=== PATIENT | female | born 1985 | race Caucasian/White ===

== ENCOUNTER 2018-08-15 06:32 | Inpatient (IN) | payer MEDICAID ==
[~2018-08-15] VITALS: Ht 154.9 cm; Wt 78.3 kg
[~2018-08-15 06:32] MED LIST: PREN1TAB17 BU
[2018-08-15 06:47] VITALS: BP 120/73; PULSE 76; RESP 16
[2018-08-15] MEDS ORDERED: NPH,100I5 SQ (06:55)
[2018-08-15] MEDS ORDERED: MISOPROSTOL 200 MCG TAB PR PRN ×2 (07:00→16:30)
[2018-08-15] MEDS ORDERED: CEFAZOLIN 2 GM/50 ML (PMX) 50 ML IVPB SCH (07:00)
[2018-08-15] MEDS ORDERED: CARBOPROST 250 MCG INJ IM PRN ×2 (07:00→16:30)
[2018-08-15] MEDS ORDERED: OXYTOCIN 30 UNITS/LR 500 ML IV SCH ×2 (07:00→16:10)
[2018-08-15] MEDS ORDERED: OXYTOCIN 30 UNITS/LR 500 ML IV PRN ×2 (07:00→16:30)
[2018-08-15] MEDS ORDERED: METHYLERGONOVINE 0.2 MG INJ IM PRN ×2 (07:00→16:30)
--- NOTE | 2018-08-15 07:42 | PREAC ---
Date/Time of Note Date/Time of Note DATE: 08/15/18 TIME: 07:40 Anesthesia Eval and Record Evaluation Time Pre-Procedure Interview DATE: 08/15/18 TIME: 07:40 Age 33 Sex female NPO: 8 hrs Preoperative diagnosis PREVIOUS C SECTION Planned procedure REPEAT C SECTION Past Medical History Past Medical History: Includes Endo: Diabetes : : (4), Para: (3), Gestational age: (38 4/7 WEEKS) Surgery & Anesthesia Issues No known issue Meds Anticoagulation: No Beta Tali within 24 hr: No Reason Beta Tali not given: Pt. not on B-Tali Reported Medications NPH, Human Insulin Isophane (Humulin N Kwikpen) 100 Unit/1 Ml Insuln.pen, 6 UNIT SQ, EA 08/15/18 Vit-Iron Fumarate-FA ( Tablet) 1 Each Tablet, 1 EACH BU DAILY 08/22/13 [none] No Conflict Check 01/03/13 Current Medications Lactated Ringer's 1,000 ml @ 125 mls/hr Q8H IV ; Start 08/15/18 at 06:53 Cefazolin Sodium/ Dextrose 50 ml @ 100 mls/hr ONCE IVPB ; Start 08/15/18 at 07:00 Oxytocin/Lactated Ringer's 500 ml @ 125 mls/hr POST IV ; Start 08/15/18 at 07:00 Oxytocin/Lactated Ringer's 500 ml @ 0 mls/hr ONCE PRN IV .VAGINAL BLEEDING; Start 08/15/18 at 07:00 Methylergonovine Maleate (Methergine) 0.2 mg ONCE PRN IM .VAGINAL BLEEDING; Start 08/15/18 at 07:00 Carboprost Tromethamine (Hemabate) 250 mcg ONCE PRN IM .VAGINAL BLEEDING; Start 08/15/18 at 07:00 Misoprostol (Cytotec) 1,000 mcg ONCE PRN ME .VAGINAL BLEEDING; Start 08/15/18 at 07:00 Meds reviewed: Yes Allergies Coded Allergies: No Known Allergies (Verified Allergy, Unknown, 08/22/13) No Known Drug Allergy (Verified Allergy, Unknown, 01/03/13) Allergies Reviewed: Yes Labs/Studies Labs Reviewed: Reviewed by anesthesiologist test: N/A Pre-procedure Exam Last vitals Vital Signs Date Temp Pulse Resp B/P (MAP) Pulse Ox O2 O2 Flow FiO2 Time Delivery Rate 5/15/19 98.7 76 16 120/73 Room Air 06:47 (89) Airway: Adequate mouth opening, Adequate thyromental dist Mallampati: Mallampati II Teeth: Normal Lung: Normal Heart: Normal ASA Physical Status ASA physical status: 2 Emergency: None Planned Anesthetic Neuraxial: Spinal Planned Pain Management Sub-arachniod narcotics, Parenteral pain med Pre-operative Attestations Prior to commencing anesthesia and surgery, the patient was re-evaluated, there was verification of: *The patient's identity *The results of appropriate recent lab work and preoperative vital signs *The above evaluation not changing prior to induction *Anesthetic plan, risk benefits, alternative and complications discussed with patient/family; questions answered; patient/family understands, accepts and wishes to proceed. Nilesh Antony M.D. August 15, 2018 07:42
[2018-08-15] MEDS: LACTATED RINGER'S 1,000 ML IV SCH ×2 (07:47→08:33)
[2018-08-15] MEDS ORDERED: ONDANSETRON 4 MG INJ IV STA (08:29)
[2018-08-15] MEDS ORDERED: CITRIC ACID/NA CITRATE 30 ML CUP PO ONE (08:30)
[2018-08-15] MEDS ORDERED: morphine SULFATE/PF (10 MG/10 ML) INJ ONE (10:59)
[2018-08-15] MEDS ORDERED: FENTAnyl 50 MCG/ML VIAL ONE (10:59)
[2018-08-15] MEDS ORDERED: METOCLOPRAMIDE 10 MG INJ ONE (10:59)
[2018-08-15] MEDS ORDERED: OXYTOCIN 10 UNIT INJ ONE (10:59)
--- NOTE | 2018-08-15 10:59 | HP ---
Date/Time of Note Date/Time of Note DATE: 08/15/18 TIME: 10:51 OB - History Hx of Present Free Text/Dictation 33 years old 4 para 3-0-0-3 with diabetes mellitus on insulin, three previous delivery at 38 weeks and 4 days desiring repeat delivery and permanent surgical sterilization. She states good movement. She denies nausea, vomiting, shortness of breath, chest pain, headache, visual changes, vaginal bleeding or LOF. Risk factors: 1. Three previous delivery 2. Diabetes mellitus on insulin 3. Obesity Chief Complaint: Scheduled for repeat delivery and bilateral tubal ligation Estimated Due Date: August 25, 2018 : 4 Para: 3 Spontaneous : 0 Therapeutic : 0 Care: Good Care Ultrasounds: Normal mid trimester US Medical Complications: Other (Diabetes mellitus) Past Family/Social History * Past Medical, Surgical, Family and Obstetric Histories reviewed from chart. Blood Type: O+ Rubella: immune RPR/VDRL: Negative GBS Status: Negative HBsAG: Negative OB Admission Exam Vital Signs Vital Signs Vital Signs Date Temp Pulse Resp B/P (MAP) Pulse Ox O2 O2 Flow FiO2 Time Delivery Rate 08/15/18 98.7 76 16 120/73 Room Air 06:47 (89) Physical Exam HEENT: WNL Heart: Rhythm Normal Lungs: Clear Abdomen: WNL Extremities: Normal Reflexes: Normal Membranes: Intact Heart Rate: 150's Accelerations: Accelerations Present Decelerations: No Decelerations Varibility: Moderate Contractions on Admission: None Last 72 hours Lab Results CBC & BMP 08/15/18 07:44 OB Assessment/Plan Other plan: 33 years old 4 para 3-0-0-3 with diabetes mellitus on insulin, 3 previo us delivery and obesity at 38 weeks and 4 days desiring repeat delivery and permanent surgical sterilization-FHR: No sign of metabolic acidosis- Category I -Continuous EFM, toco -CBC, blood type and screen -Please see the orders -O+/Rubella: Immune -GBS: Negative 2) DM: She is currently on insulin. Check fasting blood sugar and before meals after delivery, will be managed base of blood sugar level 3) obesity: Diet and exercise discussed in detail with patient The risk of delivery including but not limited to bleeding, infection, injury to other organs (bowel, bladder, ureter, vessels, nerves), injury to fetus, blood transfusion, blood transfusion related infection, risk of anesthesia, adhesion, needs for future , removal of uterus or any other indicated surgery, permanent surgical sterilization, other contraceptive options including IUD, increased risk of ectopic if failure of procedure occurs discussed with the patient and her family. She expressed understanding. All of her questions were answered. She signed the informed consent. PHYSICIAN'S VERIFICATION OF INFORMED CONSENT The patient was counseled regarding the procedure, its indications, risks, potential complications and alternatives and any questions were answered. Consent was obtained. PLANNED PROCEDURE/TREATMENT: delivery with possible using vacuum/ forceps, bilateral tubal ligation/salpingectomy and any other indicated surgery PHYSICIAN'S VERIFICATION OF INFORMED CONSENT FOR BLOOD TRANSFUSION: There is a reasonable possibility that blood transfusion will be necessary as a result of the patient's procedure. I have discussed the following with the patient/patient's legal commissary representative: An explanation of the benefits and risks of the transfusion of blood or blood products and the possible alternatives. All questions have been answered to the patient's satisfaction. INFORMED CONSENT:The patient has been informed of: The nature of the proposed care, treatment, services, medications, interventions or procedures. Potential benefits, risks or side effects, including potential problems related to recuperation. The likelihood of achieving care treatment and service goals. Reasonable alternatives to the proposed care, treatment and service. The relevant risks, benefits and side effects related to alternatives, including the possible results of not receiving care, treatment and services. When indicated, any limitations on the confidentiality of information learned from or about the patient. If appropriate, the risks, benefits and alternatives of the drugs to be used for sedation/analgesia including moderate sedation. If appropriate, patient has been provided information on the risks, benefits and alternatives to the transfusion of blood and/or blood products. If appropriate, patient has been provided information regarding the [employer] Blood Act. ARTURO GUEVARA August 15, 2018 10:58
[2018-08-15] MEDS ORDERED: NALOXONE (0.4 MG/ML) INJ IV PRN (11:30)
[2018-08-15] MEDS ORDERED: TRIMETHOBENZAMIDE 100 MG/ML VIAL IM PRN ×2 (11:30)
[2018-08-15] MEDS ORDERED: LABETALOL HCL 20MG INJ IV PRN (11:30)
[2018-08-15] MEDS ORDERED: hydrALAzine 20 MG INJ IV PRN (11:30)
[2018-08-15] MEDS ORDERED: HYDROmorphONE 1 MG/5 ML IV SYRINGE IV PRN ×3 (11:30)
[2018-08-15] MEDS ORDERED: NALBUPHINE HCL (10 MG/1 ML) INJ IV PRN (11:30)
[2018-08-15] MEDS ORDERED: KETOROLAC 30 MG INJ IV PRN (11:30)
[2018-08-15] MEDS ORDERED: OXYCODONE/ACETAMINOPHEN (5/325) TAB PO PRN ×2 (11:30)
[2018-08-15] MEDS ORDERED: DIPHENHYDRAMINE 50 MG INJ IV PRN ×2 (11:30)
[2018-08-15] MEDS ORDERED: FENTAnyl 50 MCG/ML VIAL IV PRN ×3 (11:30)
[2018-08-15] MEDS ORDERED: morphine 2 MG INJ IV PRN ×2 (11:30)
[2018-08-15] MEDS ORDERED: MIDAZOLAM 1 MG/ML 2 ML INJ IV PRN (11:30)
[2018-08-15] MEDS ORDERED: EPHEDrine 25 MG/5 ML SYG IV PRN (11:30)
[2018-08-15] MEDS ORDERED: IPRATROPIUM (NEB) 0.5 MG/2.5 ML AMP HHN PRN (11:30)
[2018-08-15] MEDS ORDERED: ALBUTEROL 0.083% (NEB) 2.5 MG/3 ML AMP HHN PRN (11:30)
[2018-08-15] MEDS ORDERED: ONDANSETRON 4 MG INJ IV PRN ×2 (11:30)
[2018-08-15] MEDS ORDERED: MEPERIDINE 25 MG INJ IV PRN (11:30)
[2018-08-15] MEDS ORDERED: DEXAMETHASONE 4 MG/ML 1 ML INJ ONE (11:43)
[2018-08-15] MEDS ORDERED: KETOROLAC 30 MG INJ ONE (12:00)
--- NOTE | 2018-08-15 12:25 | PAC ---
Date/Time of Note Date/Time of Note DATE: 08/15/18 TIME: 12:24 Post-Anesthesia Notes Post-Anesthesia Note Last documented vital signs Vital Signs Date Temp Pulse Resp B/P (MAP) Pulse Ox O2 O2 Flow FiO2 Time Delivery Rate 08/15/18 98.7 76 16 120/73 Room Air 06:47 (89) Activity: WNL Respiratory function: WNL Cardiovascular function: WNL Mental status: Baseline Pain reasonably controlled: Yes Hydration appropriate: Yes Nausea/Vomiting absent: Yes Nilesh Antony M.D. August 15, 2018 12:25
[2018-08-15 16:00] VITALS: BP 101/54; PULSE 75; RESP 17
[2018-08-15] MEDS: DEXTROSE 5%-LR 1,000 ML IV SCH (16:10)
[2018-08-15] MEDS ORDERED: LANOLIN HPA 1 PKT TOP PRN (16:30)
[2018-08-15] MEDS ORDERED: METHYLERGONOVINE 0.2 MG TAB PO PRN (16:30)
[2018-08-15] MEDS ORDERED: MAGNESIUM HYDROXIDE 30ML CUP PO PRN (16:30)
--- NOTE | 2018-08-15 17:45 | OPR ---
Operative Report Planned Procedure Procedure date August 15, 2018 Procedure(s) 1. Repeat low transverse delivery 2. Bilateral tubal ligation Performed by see signature line Brewing Director: TEO GREENBERG MD Anesthesiologist: Nilesh Antony M.D. Pre-procedure diagnosis 33 years old 4 para 3-0-0-3 with diabetes mellitus on insulin, three previous delivery at 38 weeks and 4 days desiring repeat delivery and permanent surgical sterilization. [id number] Anesthesia Type: [id number] spinal Post-Procedure Post-procedure diagnosis 1. Single intrauterine at 38 weeks and 4 days 2. Three previous delivery 3. Diabetes mellitus on insulin 4. Desiring permanent surgical sterilization 5. A 4 cm window at the lower uterine segment Findings 1. Normal uterus with a 4 cm window at the lower uterine segment. Normal fallopian tubes and ovaries 2. Viable female in cephalic presentation. 9 at one minute and 9 in 5 minutes. Weight: 3680 g - 8 pound 2 ounces. Time of delivery: 11:32 3. Placenta with three vessel cord 4. Amniotic fluid - Clear Estimated Blood Loss: 500 - 600 mls Specimen(s) none Grafts/Implant(s) none Complication(s) none Pt Condition post procedure: stable Disposition: PACU Procedure Description INDICATION AND HISTORY: A 33 years old 4 para 3-0-0-3 with diabetes mellitus on insulin, three previous delivery at 38 weeks and 4 days desiring repeat delivery and permanent surgical sterilization.. The risk of delivery including but not limited to bleeding, infection, injury to other organs (bowel, bladder, ureter, vessels, nerves), injury to fetus, blood transfusion, blood transfusion related infection, risk of anesthesia, adhesion, needs for future , removal of uterus or any other indicated surgery, permanent surgical sterilization, other contraceptive option including IUD, increased risk of ectopic if failure of procedure occurs discussed with the patient and her family. She expressed understanding. All of her questions were answered. She signed the informed consent. DESCRIPTION OF OPERATION: The patient was taken to the operating room, where she was identified and the procedure was verified. The patient received two gram of Ancef 30 minutes prior to surgery. Spinal anesthesia was adequate. The patient placed in the dorsal supine position with a left tilt. The heart rate was 134 bpm. The patient was then prepped and draped in the normal sterile fashion. She had 3 scar of previous , a Pfannenstiel skin incision was made above the scar and old scar from previous deliveries removed. Then the incision carried down to the fascia with knife. The fascia was incised in the midline and the fascial incision was carried laterally with Montes scissors. The superior portion of the fascial incision was then grasped with Erica clamps and tented up and dissected off the underlying rectus muscle with sharp dissection. The lower portion of the fascial incision was then made in a similar fashion. The rectus muscle was and the peritoneum was entered. The peritoneal incision was then stretched and a bladder blade was inserted. There was a 4 cm window on lower uterine segment, an incision was made above the window on the lower uterine segment in a transverse fashion with a knife and extended bluntly. The was delivered atraumatically in cephalic presentation with the above findings. The umbilical cord was clamped and cut. The neonatology resuscitation team was present and the baby was handed to them. A cord blood sample was obtained for further evaluation. The placenta and membrane, which appeared normal were Removed. The uterus was exteriorized and cleared of all clot and debris. The uterus was then closed in a two layer fashion with 0- Monocryl. At the time of closure, hemostasis was noted. Then the left fallopian tube was identified and was grasped using Julia clamp, segment of distal fallopian tube including fimbria was double ligated with O- plain, excised and sent to pathology. Same procedure repeated at the right side. Hemostasis of stump of both fallopian tube reassured. Then the gutters were irrigated. The peritoneum was reapproximated with 3-0 Vicryl. The muscle was reapproximated with 3-0 Vicryl. The fascia was approximated with 0-Vicryl in a running fashion. The subcutaneous tissue was re approximated with 3-0 vicryl. The skin was closed with insorb. All instruments, sponges and needle counts were correct x3. The patient tolerated the procedure well. She transferred to the recovery room in stable condition. ARTURO GUEVARA August 15, 2018 17:40
[2018-08-15 19:50] VITALS: BP 112/64; PULSE 70; RESP 18
[2018-08-15] MEDS: SENNA/DOCUSATE NA (8.6MG/50MG) TAB PO SCH (21:47)
[2018-08-16] VITALS: BP 95/55; PULSE 84; RESP 18
[2018-08-16] MEDS: DEXTROSE 5%-LR 1,000 ML IV SCH (02:07)
[2018-08-16 04:20] VITALS: BP 97/58; PULSE 88; RESP 18
[2018-08-16 08:00] VITALS: BP 90/57; PULSE 80; RESP 18
[2018-08-16] MEDS: SENNA/DOCUSATE NA (8.6MG/50MG) TAB PO SCH ×2 (09:06→21:19)
[2018-08-16] MEDS ORDERED: HYDROCODONE/APAP (5/325) TAB PO PRN (11:00)
[2018-08-16] MEDS ORDERED: DIPHTH/TET/ACEL PERTUSS (ADULT) 0.5 ML VIAL IM* ONE (11:00)
[2018-08-16] MEDS ORDERED: HYDROCODONE/APAP (5/325) TAB NGT PRN (11:00)
[2018-08-16] MEDS: HYDROCODONE/APAP (5/325) TAB PO SCH ×2 (14:00→21:19)
[2018-08-16] MEDS ORDERED: HYDROCODONE/APAP (5/325) TAB GTB SCH (14:00)
[2018-08-16] MEDS: IBUPROFEN 800 MG TAB PO SCH ×2 (14:28→21:20)
--- NOTE | 2018-08-16 15:43 | PN ---
Date/Time of Note Date/Time of Note DATE: 08/16/18 TIME: 15:31 OB Subjective Subjective Subjective Patient ambulating. Passed flatus. Is on a regular diet. Denies any dizziness or lightheadedness when she ambulates. Denies any shortness of breath or chest pain. Denies any other complaints. OB Objective Objective Objective General appearance: Alert and oriented x4 does not appear to be in any acute distress Abdomen: Soft, fundus firm and palpable at the level of umbilicus Appropriate tenderness in the incision noted Extremities: No calf tenderness, no click no edema no cord palpable Breast: No evidence of mastitis or fissure VS - Last 72 Hours, by Label Date Temp Pulse Resp B/P (MAP) Pulse Ox O2 O2 Flow FiO2 Time Delivery Rate 08/16/18 98.4 80 18 90/57 (68) Room Air 08:00 08/16/18 98.0 88 18 97/58 (71) 98 Room Air 04:20 08/16/18 98.7 84 18 95/55 (68) 97 Room Air 00:00 08/15/18 98.2 70 18 112/64 95 Room Air 19:50 (80) 08/15/18 98.8 75 17 101/54 98 Room Air 16:00 (70) 08/15/18 98.7 76 16 120/73 Room Air 06:47 (89) CBC & BMP 08/15/18 07:44 08/16/18 07:11 OB Assessment/Plan Other Assessment: Status post repeat section Postop day #1 Mild anemia, postop, asymptomatic Low platelets, cannot rule out delusional versus gestational thrombocytopenia. Other plan: Routine / post op care Follow up with repeat CBC tomorrow iron and colace. JULES COOK MD August 16, 2018 15:41
[2018-08-16] MEDS: POLYSACCHARIDE IRON COMPLEX CAP PO SCH (16:24)
[2018-08-16 17:01] VITALS: BP 93/65; PULSE 69; RESP 18
[2018-08-16 20:00] VITALS: BP 97/55; PULSE 78; RESP 18
[2018-08-17 04:00] VITALS: BP 99/50; PULSE 67; RESP 18
[2018-08-17] MEDS: HYDROCODONE/APAP (5/325) TAB PO SCH ×3 (05:56→21:36)
[2018-08-17] MEDS: IBUPROFEN 800 MG TAB PO SCH ×3 (05:56→21:35)
[2018-08-17 08:25] VITALS: BP 91/50; PULSE 64; RESP 18
[2018-08-17] MEDS: SENNA/DOCUSATE NA (8.6MG/50MG) TAB PO SCH ×2 (08:38→21:35)
[2018-08-17] MEDS: POLYSACCHARIDE IRON COMPLEX CAP PO SCH (08:39)
--- NOTE | 2018-08-17 11:37 | QN ---
Documentation Comment Postop day #2 Status post repeat and BTL Patient stable and afebrile Vital signs stable VS - Last 72 Hours, by Label Date Temp Pulse Resp B/P (MAP) Pulse Ox O2 O2 Flow FiO2 Time Delivery Rate 08/17/18 98.5 64 18 91/50 (64) 08:25 08/17/18 98.4 67 18 99/50 (66) Room Air 04:00 08/16/18 98.0 78 18 97/55 (69) Room Air 20:00 08/16/18 98.9 69 18 93/65 (74) Room Air 17:01 08/16/18 98.4 80 18 90/57 (68) Room Air 08:00 08/16/18 98.0 88 18 97/58 (71) 98 Room Air 04:20 08/16/18 98.7 84 18 95/55 (68) 97 Room Air 00:00 08/15/18 98.2 70 18 112/64 95 Room Air 19:50 (80) 08/15/18 98.8 75 17 101/54 98 Room Air 16:00 (70) 08/15/18 98.7 76 16 120/73 Room Air 06:47 (89) Hematology - 72 Hrs Test 08/15/18 07:44 08/16/18 07:11 08/17/18 06:32 Hematocrit 38.4 % (37.0-47.0) 28.1 % (37.0-47.0) 28.1 % (37.0-47.0) #L L Hemoglobin 12.2 9.0 8.9 g/dl (12.0-16.0) g/dl (12.0-16.0) g/dl (12.0-16.0) #L L Mean Corpuscular 26.1 pg (29.0-33.0) 26.5 26.1 Hemoglobin L pg (29.0-33.0) L pg (29.0-33.0) L Mean Corpuscular 31.8 32.0 31.7 Hemoglobin Concent g/dl (32.0-37.0) L g/dl (32.0-37.0) g/dl (32.0-37.0) L Mean Corpuscular 82.1 82.9 82.4 Volume fl (82.0-101.0) fl (82.0-101.0) fl (82.0-101.0) Mean Platelet 14.0 fl (7.4-10.4) 13.6 fl (7.4-10.4) 12.8 fl (7.4-10.4) Volume H H H Platelet Count 121 96 114 10^3/UL (140-415) 10^3/UL (140-415) 10^3/UL (140-415) L #L L Red Blood Count 4.68 3.39 3.41 10^6/ul (4.20-5.40) 10^6/ul (4.20-5.40 10^6/ul (4.20-5.40 ) #L ) L Red Cell 14.5 % (11.5-14.5) 14.5 % (11.5-14.5) 14.6 % (11.5-14.5) Distribution Width H White Blood Count 9.1 9.7 10.8 10^3/ul (4.8-10.8) 10^3/ul (4.8-10.8) 10^3/ul (4.8-10.8) Chemistry Test 08/15/18 10:58 08/16/18 12:40 Bedside Glucose 101 mg/dL (70-220) 88 mg/dL (70-220) Abdomen soft, fundus firm Incision clean,dry,intact Extremities nontender Assessment and plan Patient stable and doing well Encouraged to ambulate Continue with routine postop care TEO GREENBERG MD August 17, 2018 11:37
[2018-08-17 16:10] VITALS: BP 109/68; PULSE 82; RESP 18
[2018-08-17 20:30] VITALS: BP 101/53; PULSE 80; RESP 18
[2018-08-18 04:00] VITALS: BP 93/53; PULSE 64; RESP 18
[2018-08-18] MEDS: IBUPROFEN 800 MG TAB PO SCH ×2 (05:38→14:00)
[2018-08-18] MEDS: HYDROCODONE/APAP (5/325) TAB PO SCH ×2 (05:38→14:00)
[2018-08-18 08:20] VITALS: BP 88/56; PULSE 66; RESP 20
[2018-08-18] MEDS: SENNA/DOCUSATE NA (8.6MG/50MG) TAB PO SCH (08:21)
[2018-08-18] MEDS ORDERED: MEASLES,MUMPS,RUBELLA VACCINE INJ SC* ONE (09:00)
[2018-08-18] MEDS ORDERED: DIPHTH/TET/ACEL PERTUSS (ADULT) 0.5 ML VIAL IM* ONE (09:00)
[2018-08-18] MEDS: POLYSACCHARIDE IRON COMPLEX CAP PO SCH (09:54)
--- NOTE | 2018-08-18 12:19 | DS ---
Date/Time of Note Date/Time of Note DATE: 08/18/18 TIME: 12:15 Obstetrical Discharge Record Final Diagnosis Final Diagnosis: Term delivered Other Final Diagnosis Postop day #3 Status pos repeat and BTL Patient stable and afebrile Patient is ambulating, tolerating regular diet, voiding and positive flatus Vital signs stable Hematology - 72 Hrs Test 08/16/18 07:11 08/17/18 06:32 Hematocrit 28.1 % (37.0-47.0) #L 28.1 % (37.0-47.0) L Hemoglobin 9.0 g/dl (12.0-16.0) #L 8.9 g/dl (12.0-16.0) L Mean Corpuscular 26.5 pg (29.0-33.0) L 26.1 pg (29.0-33.0) L Hemoglobin Mean Corpuscular 32.0 g/dl (32.0-37.0) 31.7 g/dl (32.0-37.0) L Hemoglobin Concent Mean Corpuscular Volume 82.9 fl (82.0-101.0) 82.4 fl (82.0-101.0) Mean Platelet Volume 13.6 fl (7.4-10.4) H 12.8 fl (7.4-10.4) H Platelet Count 96 10^3/UL (140-415) #L 114 10^3/UL (140-415) L Red Blood Count 3.39 10^6/ul (4.20-5.40) 3.41 10^6/ul (4.20-5.40) #L L Red Cell Distribution 14.5 % (11.5-14.5) 14.6 % (11.5-14.5) H Width White Blood Count 9.7 10^3/ul (4.8-10.8) 10.8 10^3/ul (4.8-10.8) Chemistry Test 08/16/18 12:40 Bedside Glucose 88 mg/dL (70-220) Abdomen soft, fundus firm Incision clean, dry, intact Extremities nontender Assessment and plan Patient stable and doing well Plan to discharge home Patient instructed to follow-up with her own MANAGER STATE in 2 and 6 weeks Section Section: Repeat (and BTL) Condition on Discharge Physical Assessment Last Vitals: VS - Last 72 Hours, by Label Date Temp Pulse Resp B/P (MAP) Pulse Ox O2 O2 Flow FiO2 Time Delivery Rate 08/18/18 98.0 66 20 88/56 (67) 08:20 08/18/18 98.0 64 18 93/53 (66) Room Air 04:00 08/17/18 98.3 80 18 101/53 Room Air 20:30 (69) 08/17/18 98.3 82 18 109/68 16:10 (82) 08/17/18 98.5 64 18 91/50 (64) 08:25 08/17/18 98.4 67 18 99/50 (66) Room Air 04:00 08/16/18 98.0 78 18 97/55 (69) Room Air 20:00 08/16/18 98.9 69 18 93/65 (74) Room Air 17:01 08/16/18 98.4 80 18 90/57 (68) Room Air 08:00 08/16/18 98.0 88 18 97/58 (71) 98 Room Air 04:20 08/16/18 98.7 84 18 95/55 (68) 97 Room Air 00:00 08/15/18 98.2 70 18 112/64 95 Room Air 19:50 (80) 08/15/18 98.8 75 17 101/54 98 Room Air 16:00 (70) Voiding: Yes Bowel Movement: Yes Breast: Soft, non-tender Fundus: Firm Calf Tenderness: No Patient Condition: Good Copies To: CC: ARTURO GUEVARA ; TEO GREENBERG MD August 18, 2018 12:19
--- NOTE | 2018-08-19 16:35 | DELSUM ---
Delivery Summary A-C Datetime Report Generated by CPN: 08/19/2018 16:35 DELIVERY PERSONNEL Electrical Logger: CHARLIE, TIMA MATERNAL INFORMATION Delivery Anesthesia: Spinal Medications in Delivery: SEE ANESTHESIA RECORD Delivery QBL (ml): 500 Placenta Cultured: No Maternal Complications: Other Other Maternal Complications: GDM LABOR SUMMARY EDC: 08/25/2018 00:00 No. Babies in Womb: 1 Attempted: No Labor Anesthesia: None LABOR INFORMATION Reason for Induction: Not Applicable Oxytocin: N/A Group B Beta Strep: Negative Antibiotics # of Doses: 1 Antibiotics Time of Last Dose: 08/15/2018 11:10 Steroids Given: None Reason Steroids Not Administered: Not Applicable MEMBRANES Membranes Rupture Method: Artificial Rupture of Membranes: 08/15/2018 11:32 Length of Rupture (hr): 0.00 Amniotic Fluid Color: Clear Amniotic Fluid Amount: Moderate Amniotic Fluid Odor: None STAGES OF LABOR Stage 3 hr: 0 Stage 3 min: 2 CSECTION DELIVERY Primary Indication: REPEAT SECTION Secondary Indication: Repeat Elective CSection Urgency: Elective CSection Incidence: Repeat Labor: No Labor Elective: Elective CSection Incision: Lower Uterine Transverse Sterilization Procedure: Yadira BABY A INFORMATION Delivery Date/Time: 08/15/2018 11:32 Method of Delivery: Born in Route : No : N/A Forceps: N/A Vacuum Extraction: N/A Shoulder Dystocia : No SHOULDER DYSTOCIA BABY A Delivery Date/Time: 08/15/2018 11:32 PRESENTATION/POSITION BABY A Presentation: Cephalic Cephalic Presentation: Vertex Breech Presentation: N/A PLACENTA INFORMATION BABY A Placenta Delivery Time : 08/15/2018 11:34 Placenta Method of Delivery: Manual Removal Placenta Status: Delivered SCORES BABY A Heart Rate 1 min: >100 bpm Resp Effort 1 min: Good Cry Reflex Irritability 1 min: Cough/Sneeze/Pulls Away Muscle Tone 1 min: Active Motion Color 1 min: Body [place], Extremit Blue Resuscitation Effort 1 min: Tactile Stimulation SCORE 1 MIN: 9 Heart Rate 5 min: >100 bpm Resp Effort 5 min: Good Cry Reflex Irritability 5 min: Cough/Sneeze/Pulls Away Muscle Tone 5 min: Active Motion Color 5 min: Body [place], Extremit Blue Resuscitation Effort 5 min: Tactile Stimulation SCORE 5 MIN: 9 INFORMATION BABY A Gestational Age at Delivery: 38.4 Gestational Status: Early Term- 37- 38.6 Weeks Outcome : Liveborn Condition : Stable Sex: Female IDENTIFICATION/MEDS BABY A ID Band Number: [id number] ID Band Location: Right Leg; Left Arm Sensor Applied: Yes Sensor Number: [id number] Sensor Location : Cord Clamp Vitamin K Given : Not Given Erythromycin Given: Not Given WEIGHT/LENGTH BABY A Birthweight (gm): 3680 Weight (lb): 8 Weight (oz): 2 Infant Length (in): 20.00 Length (cm): 50.80 CORD INFORMATION BABY A No. Cord Vessels: 3 Nuchal Cord : N/A Cord Blood Taken: Yes Suction: Mouth; Nose ASSESSMENT BABY A Infant Complications: None Physical Findings at Delivery: Within Normal Limits Infant Respirations: Appears Normal Site Director/ALS Called : Yes Infant Care By: RT/RN Transferred To: Remains with Mother
== END 2018-08-18 15:40 | disposition home or self-care (01) | DRG 784 ==
LOC: L-D 06:32 → PP1 15:56
PROVIDERS: ADMIT Obstetrics & Gynecology; ATTEND Obstetrics & Gynecology
PROC: 0UL70ZZ Occlusion of Bilateral Fallopian Tubes, Open Approach (ICD-10-PCS; 2018-08-15)
PROC: 10D00Z1 Extraction of Products of Conception, Low, Open Approach (ICD-10-PCS; principal; 2018-08-15 09:00)
DX: O65.5 Obstructed labor due to abnormality of maternal pelvic organs (principal); O24.113 Pre-existing type 2 diabetes mellitus, in pregnancy, third trimester; O34.211 Maternal care for low transverse scar from previous cesarean delivery; O99.013 Anemia complicating pregnancy, third trimester; E11.9 Type 2 diabetes mellitus without complications; Z30.2 Encounter for sterilization; Z3A.38 38 weeks gestation of pregnancy; Z37.0 Single live birth
CPT/HCPCS: 82962; 85025; 85610; 85730; 86592; 86850; 86900; 86901; 87340; 88302; 90715; 99464; J0690; J1100; J1885; J2274; J2405; J2590; J2765; J3010; J7120; J7121